=== PATIENT | female | born 2000 | race Caucasian/White ===

== ENCOUNTER 2025-07-18 18:44 | Emergency (ER) | payer MEDICAID ==
[2025-07-18 19:36] VITALS: TEMP 98.8; O2SAT 94
[2025-07-18 20:15] VITALS: PULSE 105
--- NOTE | 2025-07-18 20:19 | ERPHSYRPT ---
- History of Present Illness Time Seen by Provider: 07/18/25 19:30 Patient Subjective Stated Complaint: c/o cough, fever, and not feeling well since sunday Triage Nursing Assessment: patient brought to ED by boyfriend with c/o cough and fevers at home. pstient went to a [facility] and was prescribed an inhaler and an antihistamine. symptoms started on Sunday the and hasn't gotten better. patient is afebrile upon arrival, skin w/n/d, states she has been coughing up thick green sputume and her chest castro when she tries to take a deep breath and coughs. gait steady, 94% on RA, tachycardic. Physician History: Cough, onset of symptoms 6 days ago, she apparently went to urgent care clinic and her symptoms have persisted she denied history of asthma, she does not smoke Allergies/Adverse Reactions: sulfamethoxazole [From Bactrim] Allergy (Verified 07/18/25 19:25) Hives trimethoprim [From Bactrim] Allergy (Verified 07/18/25 19:25) Hives Hx Tetanus, Diphtheria Vaccination/Date Given: Yes Hx Influenza Vaccination/Date Given: No Hx Pneumococcal Vaccination/Date Given: No Travel Risk - International Travel Have you traveled outside of the country in past 3 weeks: No - Emerging Infectious Disease Are you exhibiting symptoms associated with any current EIDs: Yes Symptoms: Cough: New Onset, Fever - Past Medical History Pertinent Past Medical History: Yes Psycho-Social History: Anxiety, Depression - Past Surgical History Past Surgical History: No - Female History Hx Last Menstrual Period: t-2 Hx Now: No - Social History Smoking Status: Never smoker Exposure to second hand smoke: Yes Drug Use: none - Social Determinants of Health Will the patient participate in the screening: Yes Do you worry about a steady place to live?: No Do you have any problems with any of the following?: No known problems In the past 12 months,have you had to go without utilities?: No Transportation Issues: No Has anyone in your support network made you feel unsafe?: No Have you or anyone in your house had to go w/o enough food: No - Nursing Vital Signs Nursing Vital Signs: Initial Vital Signs Temperature 98.8 F 07/18/25 19:26 Pulse Rate 117 H 07/18/25 19:26 Respiratory Rate 18 07/18/25 19:26 Blood Pressure 112/62 07/18/25 19:26 O2 Sat by Pulse Oximetry 94 L 07/18/25 19:26 Pain Scale Pain Intensity 10 - Physical Exam General Appearance: no apparent distress, alert Eye Exam: PERRL/EOMI, eyes nml inspection Ears, Nose, Throat Exam: normal ENT inspection, TMs normal, pharynx normal, moist mucous membranes Neck Exam: normal inspection, non-tender, supple, full range of motion Respiratory Exam: normal breath sounds, lungs clear, No respiratory distress Cardiovascular Exam: regular rate/rhythm, normal heart sounds Gastrointestinal/Abdomen Exam: soft, No tenderness Back Exam: normal inspection, No CVA tenderness, No vertebral tenderness Extremity Exam: normal inspection, normal range of motion Neurologic Exam: alert, oriented x 3, cooperative, normal mood/affect, sensation nml, No motor deficits Skin Exam: normal color, warm, dry, No rash Lymphatic Exam: No adenopathy SpO2 Interpretation: normal SpO2: 94 Ordered Tests: Active Orders 24 hr Category Date Time Status CHEST 2 VIEWS (PA AND LAT) Stat Exams 07/18/25 19:35 Taken - Progress Progress Note: 07/18/25 20:37 Discussed x-ray results, outpatient follow-up and treatment - Departure Departure Disposition: Home Clinical Impression: Pneumonia Qualifiers: Pneumonia type: due to unspecified organism Laterality: left Lung location: lower lobe of lung Qualified Code(s): J18.9 - Pneumonia, unspecified organism Condition: Stable Critical Care Time: No Referrals: DEBBIE HUTTON CEO [Primary Care Provider, UNKNOWN] - Follow up with PCP 4 days Instructions: Pneumonia, Adult (DC) Prescriptions: Doxycycline Hyclate 100 mg [Vibramycin 100 MG] 100 mg PO BID #[id number] tab
[2025-07-18 20:51] VITALS: BP 114/65; RESP 18
--- NOTE | 2025-07-18 22:08 | XRAY ---
Indication: Cough. Comparison: None PA/lateral chest demonstrates left upper lobe/lingula pneumonic infiltrate without large effusion. Remaining heart, right lung, and bony thorax unremarkable.
== END 2025-07-18 20:55 | disposition home or self-care (01) ==
LOC: ED 18:44
DX: J18.9 Pneumonia, unspecified organism (principal); R05.1 Acute cough; Z79.899 Other long term (current) drug therapy